=== PATIENT | female | born 1940 | race Caucasian/White ===

== ENCOUNTER 2017-03-24 10:16 | Observation (INO) | payer OTHER ==
[~2017-03-24] VITALS: Ht 157.5 cm; Wt 105.8 kg
[~2017-03-24 10:16] MED LIST: AMBIEN10 MG PO; CRESTOR40 MG PO; FUROSEMIDE20 MG PO; NORVASC2.5 MG PO; PLAVIX75 MG PO; PROZAC20 MG PO; TOPROL XL6.25 MG PO
[2017-03-24 11:02] LABS: HEMATOCRIT 44.5 % (36.0-46.0); MCH 28.9 PG (29.0-34.0); MCHC 33.5 G/DL (30.0-36.0); MCV 86.2 FL (83-99); MEAN PLAT.VOLUME 11.9 uM^3 (9.5-12.4); PLATELET COUNT 277 K/uL (156-360); RBC DIS.WIDTH-CV 12.1 % (11.8-14.6); RED BLOOD COUNT 5.16 M/uL (3.80-5.20); WHITE BLOOD COUNT 7.4 K/uL (4.1-10.2)
[2017-03-24 11:10] LABS: CHLORIDE 105 mEq/L (99-109); POTASSIUM 4.6 mEq/L (3.7-5.4); SODIUM 139 mEq/L (136-147)
[2017-03-24 11:12] LABS: GLUCOSE 115 mg/dL (70-99)
[2017-03-24 11:13] LABS: ANION GAP 10 MEQ/L (2-14)
[2017-03-24 11:16] LABS: GFR ESTIMATE (CALCULATED) > 59 mL/min/
[2017-03-24 11:17] LABS: UREA NITROGEN (BUN) 12 mg/dL (9-23)
[2017-03-24 11:23] LABS: TROP-I INTERPRETATION NEGATIVE; TROPONIN-I < 0.01 ng/mL (0.0-0.30)
[2017-03-24 12:07] LABS: TOTAL BILIRUBIN 0.7 mg/dL (0.0-1.0)
[2017-03-24 12:08] LABS: ALKALINE PHOSPHATASE 72 IU/L (3-129)
[2017-03-24 12:10] LABS: DIRECT BILIRUBIN 0.3 mg/dL (0.0-0.3)
[2017-03-24 12:12] LABS: LIPASE 21 U/L (1.0-51.0)
[2017-03-24] MEDS ORDERED: NORVASC5 MG PO (14:27)
[2017-03-24] MEDS ORDERED: TOPROL XL25 MG PO (14:27)
[2017-03-24] MEDS ORDERED: PROTONIX40 MG PO (14:28)
[2017-03-24] MEDS ORDERED: LITE COAT ASPI325 M1 PO (14:29)
[2017-03-24] MEDS ORDERED: WELLBUTRIN SR150 MG PO (14:29)
[2017-03-24] MEDS ORDERED: SYMBICORT60 INHALAT IH (14:30)
[2017-03-24 15:07] VITALS: BP 182/77
[2017-03-24 17:48] LABS: TROP-I INTERPRETATION NEGATIVE; TROPONIN-I < 0.01 ng/mL (0.0-0.30)
[2017-03-24 20:30] VITALS: BP 131/60
[2017-03-24 21:01] LABS: ADD MIUA? YES; BILIRUBIN NEGATIVE; BLOOD NEGATIVE; COLOR YELLOW ((YELLOW)); GLUCOSE (STRIP) NEGATIVE; KETONES NEGATIVE; LEUKOCYTES TRACE; NITRITE NEGATIVE; PROTEIN (STRIP) NEGATIVE; UROBILINOGEN 0.2 MG/DL (0.2-1.0)
[2017-03-24 21:18] LABS: BACTERIA RARE /HPF; EPITHELIAL CELLS 2+ /HPF; MUCUS TRACE /LPF; WHITE BLOOD CELLS 0-5 /HPF (0-5)
[2017-03-24 23:45] VITALS: BP 102/57
[2017-03-25] LABS: TROP-I INTERPRETATION NEGATIVE; TROPONIN-I < 0.01 ng/mL (0.0-0.30)
[2017-03-25 04:23] VITALS: BP 104/54
[2017-03-25 08:20] VITALS: BP 126/62
== END 2017-03-25 10:01 | disposition home or self-care (01) ==
LOC: EME 10:16 → EDOF 13:43 → 5WEST 13:43
PROVIDERS: Physician Assistant
DX: R07.89 Other chest pain (principal); Z95.1 Presence of aortocoronary bypass graft; I10 Essential (primary) hypertension; K21.9 Gastro-esophageal reflux disease without esophagitis; Z79.02 Long term (current) use of antithrombotics/antiplatelets; Z87.891 Personal history of nicotine dependence; R10.31 Right lower quadrant pain; G47.33 Obstructive sleep apnea (adult) (pediatric); I69.392 Facial weakness following cerebral infarction; Z91.19 Patient's noncompliance with other medical treatment and regimen; Z98.84 Bariatric surgery status; Z88.2 Allergy status to sulfonamides; F32.9 Major depressive disorder, single episode, unspecified; I25.10 Atherosclerotic heart disease of native coronary artery without angina pectoris; E78.5 Hyperlipidemia, unspecified; Z79.82 Long term (current) use of aspirin; Z95.5 Presence of coronary angioplasty implant and graft; M54.9 Dorsalgia, unspecified
CPT/HCPCS: 71020; 71275; 74176; 74177; 80048; 80076; 81003; 83690; 84484; 85027; 93005; 94640; 99202; 99281; 99285; G0378; J1644; J2270